=== PATIENT | male | born 1970 | race Caucasian/White ===

== ENCOUNTER 2022-05-03 11:56 | Inpatient (IN) | payer OTHER, BC ==
[~2022-05-03] VITALS: Ht 185.4 cm; Wt 90.8 kg
[2022-05-03 12:15] LABS: MEAN CORPUSCULAR HEMOGLOBIN 33.4 pg (27.0-33.0); MEAN CORPUSCULAR HGB CONC 35.1 g/dL (32.0-36.0); WHITE BLOOD COUNT (AUTO) 7.8 K/uL (4.8-10.8)
[2022-05-03 12:54] LABS: ALBUMIN 3.6 g/dL (3.5-5.0); POTASSIUM 4.6 mmol/L (3.5-5.1); TOTAL PROTEIN, SERUM 7.3 g/dL (6.0-8.3)
[2022-05-03 13:08] LABS: HEMATOCRIT 44.5 % (42-54); MEAN CORPUSCULAR VOLUME 95.3 fL (79-99); RED BLOOD CELL COUNT(AUTO) 4.67 MIL/uL (4.50-6.20)
[2022-05-03 13:09] LABS: LYMPHOCYTES % (AUTO) 7.3 % (21.0-51.0); NEUTROPHILS % (AUTO) 81.7 % (40.0-77.0); PLATELET COUNT (AUTO) 165 K/uL (130-400); RED CELL DISTRIBUTION WIDTH 12.5 % (11.0-15.5)
[2022-05-03 13:10] LABS: BASOPHILS % (AUTO) 0.8 % (0.0-5.0); MONOCYTES % (AUTO) 8.7 % (3.0-13.0)
[2022-05-03 13:16] LABS: CREATININE 1.4 mg/dL (0.5-1.5)
[2022-05-03] MEDS ORDERED: 0.9%NACL 1000ML 1,000 ML IV ONE ×2 (13:30→14:30)
[2022-05-03] MEDS ORDERED: ONDANSETRON 4MG INJ IV PRN (17:30)
[2022-05-03] MEDS: 0.9%NACL 1000ML 1,000 ML IV SCH (17:30)
[2022-05-03] MEDS ORDERED: ACETAMINOPHEN 325 MG TAB PO PRN ×2 (17:30)
[2022-05-03 18:21] LABS: MAGNESIUM 1.8 mg/dL (1.80-2.40); PHOSPHORUS 1.6 mg/dL (2.5-4.9); THYROID STIMULATING HORMONE 1.58 uIU/mL (0.36-3.74)
[2022-05-03] MEDS ORDERED: MAGNESIUM OXIDE 400 MG TABLET PO SCH (20:30)
[2022-05-03] MEDS: NEUTRA-PHOS PACKET 1 EACH PO SCH (22:00)
[2022-05-03 22:02] LABS: MYOGLOBIN 770 ng/mL (10-92)
[2022-05-03 22:09] LABS: CREATINE KINASE, TOTAL 5318 U/L (21-232)
[2022-05-04] MEDS: 0.9%NACL 1000ML 1,000 ML IV SCH ×4 (00:51→18:39)
[2022-05-04] MEDS: NEUTRA-PHOS PACKET 1 EACH PO SCH (03:20)
[2022-05-04 04:30] VITALS: BP 167/108
[2022-05-04 07:06] LABS: ALBUMIN 3.5 g/dL (3.5-5.0); CREATININE 1.1 mg/dL (0.5-1.5); MAGNESIUM 1.8 mg/dL (1.80-2.40); PHOSPHORUS 2.3 mg/dL (2.5-4.9); POTASSIUM 3.1 mmol/L (3.5-5.1); TOTAL PROTEIN, SERUM 7.3 g/dL (6.0-8.3)
[2022-05-04 07:25] VITALS: BP 158/96
[2022-05-04 09:44] LABS: MYOGLOBIN 172 ng/mL (10-92)
[2022-05-04 09:48] LABS: CREATINE KINASE, TOTAL 5109 U/L (21-232)
[2022-05-04 11:30] VITALS: BP 160/110
[2022-05-04 14:57] LABS: MYOGLOBIN 116 ng/mL (10-92)
[2022-05-04 15:05] LABS: CREATINE KINASE, TOTAL 4363 U/L (21-232)
[2022-05-04 15:30] VITALS: BP 164/113
[2022-05-04] MEDS ORDERED: LISI30TA4 PO (15:58)
[2022-05-04] MEDS ORDERED: CARV25TA PO (15:58)
[2022-05-04] MEDS ORDERED: KCL 20 MEQ ERTAB PO ONE ×2 (18:00→22:00)
[2022-05-04 20:00] VITALS: BP 165/113
[2022-05-04] MEDS: LISINOPRIL 20 MG TABLET PO SCH (20:37)
[2022-05-04] MEDS: CARVEDILOL 12.5 MG TABLET PO SCH (20:37)
[2022-05-04] MEDS ORDERED: PHARMACY COMMUNICATION MISC PRN (21:00)
[2022-05-04] MEDS ORDERED: CHLORDIAZEPOXIDE HCL 25 MG CAP PO PRN (21:00)
[2022-05-04 21:40] LABS: MYOGLOBIN 145 ng/mL (10-92)
[2022-05-04 21:43] LABS: CREATINE KINASE, TOTAL 4048 U/L (21-232)
[2022-05-04] MEDS ORDERED: LABETALOL 20MG VIAL IV PRN (22:00)
[2022-05-04] MEDS ORDERED: LABETALOL 20MG SYG IV PRN (22:00)
[2022-05-05] VITALS: BP 118/79
[2022-05-05] MEDS: 0.9%NACL 1000ML 1,000 ML IV SCH ×2 (01:30→09:30)
[2022-05-05 04:33] VITALS: BP 149/92
[2022-05-05 04:51] LABS: HEMATOCRIT 39.5 % (42-54); MEAN CORPUSCULAR HEMOGLOBIN 33.6 pg (27.0-33.0); MEAN CORPUSCULAR HGB CONC 35.2 g/dL (32.0-36.0); MEAN CORPUSCULAR VOLUME 95.4 fL (79-99); RED BLOOD CELL COUNT(AUTO) 4.14 MIL/uL (4.50-6.20); RED CELL DISTRIBUTION WIDTH 11.9 % (11.0-15.5); WHITE BLOOD COUNT (AUTO) 4.8 K/uL (4.8-10.8)
[2022-05-05 05:09] LABS: CREATININE 0.8 mg/dL (0.5-1.5); MAGNESIUM 1.7 mg/dL (1.80-2.40); PHOSPHORUS 2.1 mg/dL (2.5-4.9); POTASSIUM 3.4 mmol/L (3.5-5.1)
[2022-05-05] MEDS ORDERED: POTASSIUM CHLORIDE 20MEQ/100ML 100 ML IV PRN (06:30)
[2022-05-05] MEDS ORDERED: LIDOCAINE HCL-MPF 1% 2ML VIAL IV PRN (06:30)
[2022-05-05] MEDS ORDERED: POTASSIUM CHLORIDE 10% ELIXIR 20 MEQ/15 ML UDCUP PO PRN (06:30)
[2022-05-05] MEDS ORDERED: MAGNESIUM 2GM PREMIX 50ML 50 ML IV PRN (06:30)
[2022-05-05] MEDS: KCL 20 MEQ ERTAB PO PRN ×3 (06:41→12:35)
[2022-05-05] MEDS: LISINOPRIL 20 MG TABLET PO SCH (08:26)
[2022-05-05] MEDS: CARVEDILOL 12.5 MG TABLET PO SCH (08:26)
[2022-05-05 08:27] VITALS: BP 146/94
[2022-05-05] MEDS ORDERED: FOLIC ACID 1 MG TABLET PO SCH (09:00)
[2022-05-05] MEDS ORDERED: MULTIVITAMIN TABLET PO SCH (09:00)
[2022-05-05] MEDS ORDERED: THIAMINE HCL 100 MG/ML 2ML VIAL IM SCH (09:00)
[2022-05-05 09:31] LABS: MYOGLOBIN 230 ng/mL (10-92)
[2022-05-05 09:33] LABS: CREATINE KINASE, TOTAL 3131 U/L (21-232)
[2022-05-05 11:20] VITALS: BP 140/93
[2022-05-05] MEDS ORDERED: LISI30TA4 PO (12:50)
[2022-05-05] MEDS ORDERED: FOLI1 PO (12:50)
[2022-05-05] MEDS ORDERED: THIA250T9 PO (12:50)
[2022-05-05] MEDS ORDERED: CARV25TA PO (12:50)
[2022-05-05] MEDS ORDERED: KCL 20 MEQ ERTAB PO SCH (13:00)
[2022-05-05] MEDS ORDERED: MAGNESIUM 2GM PREMIX 50ML 50 ML IV SCH (13:00)
[2022-05-05] MEDS ORDERED: CARVEDILOL 12.5 MG TABLET PO ONE (13:00)
[2022-05-05] MEDS ORDERED: NEUTRA-PHOS PACKET 1 EACH PO SCH (13:00)
[2022-05-05] MEDS: BACLOFEN 10 MG TABLET PO SCH ×2 (13:15→14:00)
[2022-05-05 15:01] LABS: MYOGLOBIN 181 ng/mL (10-92)
[2022-05-05 15:19] LABS: CREATINE KINASE, TOTAL 2943 U/L (21-232)
[2022-05-05 15:50] VITALS: BP 146/93
[2022-05-05] MEDS ORDERED: 0.9%NACL 1000ML 1,000 ML IV ONE (17:00)
[2022-05-05] MEDS ORDERED: CARVEDILOL 25 MG TABLET PO SCH (21:00)
== END 2022-05-05 18:51 | disposition home or self-care (01) | DRG 683 ==
LOC: EDH 11:56 → EDHIP 17:02 → 4CH 05-04 03:57
PROVIDERS: ADMIT Internal Medicine; ATTEND Internal Medicine
DX: N17.9 Acute kidney failure, unspecified (principal); M62.82 Rhabdomyolysis; I16.0 Hypertensive urgency; E86.0 Dehydration; E86.1 Hypovolemia; I10 Essential (primary) hypertension; E87.6 Hypokalemia; Z91.19 Patient's noncompliance with other medical treatment and regimen; Z79.899 Other long term (current) drug therapy; Z91.14 Patient's other noncompliance with medication regimen
CPT/HCPCS: 36415; 70450; 71045; 80048; 80053; 82550; 83735; 83874; 83880; 84100; 84443; 84484; 85025; 85027; 93005; G0378; J3411; J3475; J7030